=== PATIENT | female | born 1975 | race Caucasian/White ===

== ENCOUNTER → 2019-02-11 09:18 | Outpatient (CLI) | payer BC | END | disposition home or self-care (01) | LOC: D.US 09:18 | DX: R10.84 Generalized abdominal pain (principal); R94.5 Abnormal results of liver function studies ==

== ENCOUNTER → 2020-04-18 07:56 | Outpatient (CLI) | payer BC ==
[2020-04-18 08:40] LABS: ALBUMIN 3.2 g/dL (3.4-5.0); BILIRUBIN - DIRECT 0.06 mg/dL (0.00-0.30); BILIRUBIN - INDIRECT 0.34 mg/dL (0.00-1.00); BILIRUBIN - TOTAL 0.4 mg/dL (0.2-1.3); PROTEIN - SERUM 7.1 g/dL (6.4-8.2)
== END | disposition home or self-care (01) ==
LOC: D.LAB 07:56 → D.US 08:30
PROVIDERS: ATTEND Internal Medicine Gastroenterology
DX: K76.0 Fatty (change of) liver, not elsewhere classified (principal)